=== PATIENT | male | born 1980 | race Caucasian/White ===

== ENCOUNTER 2019-10-04 16:23 | Outpatient (CLI) | payer OTHER ==
--- NOTE | 2019-10-05 10:18 | MRI Report ---
PROCEDURE: Knee RT W/O INDICATIONS: RIGHT KNEE PAIN TECHNIQUE: Noncontrast sagittal PD fast spin echo and T2 fast spin echo with fat saturation, sagittal 3-D gradie nt sequence with fat saturation; coronal T1 spin echo and PD fast spin echo with fat saturation, and axial PD fast spin echo with fat saturation through the knee. COMPARISON: None. FINDINGS: Image quality: Excellent. Menisci: The medial and lateral menisci demonstrate normal morphology and internal signal. The meni scal root ligaments appear intact. Cruciate ligaments: The anterior and posterior cruciate ligaments appear intact. Medial structures: The medial collateral ligament appears intact. Visualized portions of the pes ans erinus tendons appear normal. No abnormal bursal fluid. Lateral structures: The lateral collateral ligament, long and short heads of the biceps femoris tend on appear intact. The popliteus tendon appears normal; the popliteofibular ligament appears intact. Iliotibial band appears normal. Anterior structures: The quadriceps and patellar tendons appear intact. Patellar alignment is tammie l. No femoral trochlear dysplasia or ventral trochlear prominence. No edema in the infrapatellar fa t pad. Bones and cartilage: No bone marrow contusions or fractures. There is mild tricompartmental periarti cular osteophyte formation. There is moderate articular cartilage loss overlying the superior aspect of the medial patellar apex. Mild ill-defined underlying degenerative marrow edema within the patella r apex is present. Joint space: There is physiologic knee joint fluid. Trace Altamirano?s cyst. Normal appearing synovial p licae are incidentally noted. IMPRESSION: 1. Patellofemoral compartment osteoarthritis with associated articular cartilage loss. 2. No internal derangement. 3. Trace Altamirano's cyst. Reviewed by: Sotero Pryor MD on 10/05/2019 10:17 AM PDT Approved by: Sotero Pryor MD on 10/05/2019 10:17 AM PDT Station ID: [id number]
== END 2019-10-04 16:24 | disposition home or self-care (01) ==
LOC: DI 16:23 → EDSEX 16:23 → DI 16:24
DX: M17.12 Unilateral primary osteoarthritis, left knee (principal); M71.22 Synovial cyst of popliteal space [Baker], left knee